=== PATIENT | male | born 1985 | race African-American/Black ===

== ENCOUNTER 2019-10-24 08:19 | Day surgery (SDC) | payer MEDICAID ==
[~2019-10-24] VITALS: Ht 177.8 cm; Wt 87.0 kg
[2019-10-24] MEDS ORDERED: [UNRECOGNIZED DRUG - OTHER] (08:35)
[2019-10-24] MEDS ORDERED: ACETAZOLAMIDE SODIUM 500MG/VIAL IV ONE (08:45)
[2019-10-24] MEDS ORDERED: BALANCED SALT IRRIG SOLN COMB1 500ML OP ONE (09:00)
[2019-10-24 09:17] LABS: BASOPHILS % 0.9 % (0.0-2.0); EOSINOPHILS % 1.6 % (0.0-5.0); HEMATOCRIT. 49.6 % (42.0-52.0); HEMOGLOBIN. 16.2 g/dL (14.0-18.0); LYMPHOCYTES % 48.8 % (20.0-50.0); MEAN CORPUSCULAR HEMOGLOBIN 27.3 pg (28.0-32.0); MEAN CORPUSCULAR VOLUME 83.6 fL (80.0-94.0); MONOCYTES % 7.2 % (2.0-8.0); NEUTROPHILS % 41.5 % (40.0-76.0); PLATELET 184 x1000/uL (130-400); RED BLOOD CELL COUNT 5.93 mill/uL (4.7-6.1); RED CELL DISTRIBUTION WIDTH 13.6 % (11.6-14.6)
[2019-10-24 09:23] LABS: CHLORIDE 112 mEq/L (98-107); PROTHROMBIN TIME 10.7 sec (9.6-11.0)
[2019-10-24] MEDS ORDERED: TRIAMCINOLONE ACETONIDE 40MG/ML 1ML VIAL ONE (09:25)
[2019-10-24] MEDS ORDERED: HYALURONATE SODIUM 10 MG/ML 0.55ML SYRINGE IO ONE ×2 (09:25→10:54)
[2019-10-24] MEDS ORDERED: PROPOFOL 200MG/20ML VIAL IV ONE (10:04)
[2019-10-24] MEDS ORDERED: FENTANYL CITRATE/PF 50MCG/ML 2ML VIAL ONE (10:04)
[2019-10-24] MEDS ORDERED: TRYPAN BLUE 0.5 ML DISP.SYRIN IO ONE (10:49)
[2019-10-24] MEDS ORDERED: MEPERIDINE HCL/PF 25MG/ML CPJ IV PRN (11:45)
[2019-10-24] MEDS: ONDANSETRON HCL 4MG/2ML INJ IV PRN ×2 (13:39→14:34)
[2019-10-24] MEDS: FENTANYL CITRATE/PF 50MCG/ML 2ML VIAL IV PRN ×2 (13:40→14:34)
[2019-10-24 14:34] VITALS: BP 119/86
== END 2019-10-24 14:22 | disposition home or self-care (01) ==
LOC: ER 08:19 → ORIP 08:43 → UNDOADMOB 08:43 → OR 09:24 → ER 09:42 → OR 14:22
PROVIDERS: ATTEND Ophthalmology
DX: H40.9 Unspecified glaucoma (principal); H20.12 Chronic iridocyclitis, left eye; H26.212 Cataract with neovascularization, left eye; H21.542 Posterior synechiae (iris), left eye; H25.89 Other age-related cataract; Z79.899 Other long term (current) drug therapy; Z98.890 Other specified postprocedural states
CPT/HCPCS: 36415; 66180; 66984; 80053; 85025; 85610; 93005; C1783; J1120; J2405; J2704; J3010; J3490; Q9957; V2632; J3301

== ENCOUNTER → 2020-01-28 | Outpatient (CLI) | payer MEDICAID ==
[~2020-01-28] MED LIST: METH2.5T PO; P20 PO; PRED5DRO22 EACHEYE; [UNRECOGNIZED DRUG - OTHER]
== END | disposition home or self-care (01) ==
LOC: LAB 11:45
PROVIDERS: ATTEND Ophthalmology
DX: Z01.818 Encounter for other preprocedural examination (principal); Z11.59 Encounter for screening for other viral diseases
CPT/HCPCS: C9803; U0003

== ENCOUNTER → 2020-01-30 | Day surgery (SDC) | payer MEDICAID ==
[~2020-01-30] VITALS: Ht 177.8 cm; Wt 79.4 kg
[~2020-01-30] MED LIST changes: +ATROPINE SULFATE 1% OPHTH 2ML ONE; +BALANCED SALT IRRIG SOLN 15ML ONE; +BUPIVACAINE HCL/PF 0.75% (7.5MG/ML) 10ML ONE; +CEFAZOLIN SODIUM 1000MG/VIAL ONE; +CIPROFLOXACIN 0.3% OPHTH SOLN 2.5ML ONE; +DEXAMETHASONE 4MG/ML 1ML VIAL ONE; +LACTATED RINGERS 1,000 ML IV SCH; +LIDOCAINE HCL 2%/EPINEPHRINE 1:100,000 20 ML VIAL INFIL ONE; +LIDOCAINE HCL/PF 2% 20 MG/ML 10ML VIAL ONE; +MIDAZOLAM HCL 2 MG/2 ML VIAL ONE; +NEO/POLYMYX B SULF/DEXAMETH OPHTH OINT 3.5GM ONE; +PREDNISOLONE ACETATE 1% OPHTH DROPS 5ML ONE; +PROPOFOL 200MG/20ML VIAL IV ONE; +TETRACAINE 0.5% OPHTH DROPS 4ML ONE
== END | disposition home or self-care (01) ==
LOC: OR 07:46
PROVIDERS: ATTEND Ophthalmology
DX: H40.9 Unspecified glaucoma (principal); H21.501 Unspecified adhesions of iris, right eye; I10 Essential (primary) hypertension; Z79.899 Other long term (current) drug therapy; Z98.890 Other specified postprocedural states
CPT/HCPCS: 66180; J0690; J1100; J2250; J2704; J3490

== ENCOUNTER → 2020-03-15 | Outpatient (CLI) | payer MEDICAID ==
[~2020-03-15] MED LIST changes: -ATROPINE SULFATE 1% OPHTH 2ML ONE; -BALANCED SALT IRRIG SOLN 15ML ONE; -BUPIVACAINE HCL/PF 0.75% (7.5MG/ML) 10ML ONE; -CEFAZOLIN SODIUM 1000MG/VIAL ONE; -CIPROFLOXACIN 0.3% OPHTH SOLN 2.5ML ONE; -DEXAMETHASONE 4MG/ML 1ML VIAL ONE; -LACTATED RINGERS 1,000 ML IV SCH; -LIDOCAINE HCL 2%/EPINEPHRINE 1:100,000 20 ML VIAL INFIL ONE; -LIDOCAINE HCL/PF 2% 20 MG/ML 10ML VIAL ONE; -MIDAZOLAM HCL 2 MG/2 ML VIAL ONE; -NEO/POLYMYX B SULF/DEXAMETH OPHTH OINT 3.5GM ONE; -PREDNISOLONE ACETATE 1% OPHTH DROPS 5ML ONE; -PROPOFOL 200MG/20ML VIAL IV ONE; -TETRACAINE 0.5% OPHTH DROPS 4ML ONE; -[UNRECOGNIZED DRUG - OTHER]
== END | disposition home or self-care (01) ==
LOC: LAB 12:21
PROVIDERS: ATTEND Ophthalmology
DX: Z01.812 Encounter for preprocedural laboratory examination (principal); Z20.828 Contact with and (suspected) exposure to other viral communicable diseases
CPT/HCPCS: C9803; U0003

== ENCOUNTER 2020-03-19 07:19 | Day surgery (SDC) | payer MEDICAID ==
[~2020-03-19] VITALS: Ht 177.8 cm; Wt 83.9 kg
[2020-03-19] MEDS ORDERED: FENTANYL CITRATE/PF 50MCG/ML 2ML VIAL ONE (09:55)
[2020-03-19] MEDS ORDERED: MIDAZOLAM HCL 2 MG/2 ML VIAL ONE ×3 (09:55→10:23)
[2020-03-19] MEDS ORDERED: BALANCED SALT IRRIG SOLN 15ML ONE (10:00)
[2020-03-19] MEDS ORDERED: CIPROFLOXACIN 0.3% OPHTH SOLN 2.5ML ONE (10:00)
[2020-03-19] MEDS ORDERED: NEO/POLYMYX B SULF/DEXAMETH OPHTH OINT 3.5GM ONE (10:00)
[2020-03-19] MEDS ORDERED: BUPIVACAINE HCL/PF 0.75% (7.5MG/ML) 10ML ONE (10:00)
[2020-03-19] MEDS ORDERED: TETRACAINE 0.5% OPHTH DROPS 4ML ONE (10:00)
[2020-03-19] MEDS ORDERED: LIDOCAINE HCL 2%/EPINEPHRINE 1:100,000 20 ML VIAL INFIL ONE (10:00)
[2020-03-19] MEDS: LACTATED RINGERS 1,000 ML IV SCH ×2 (12:21→12:34)
== END 2020-03-19 11:20 | disposition home or self-care (01) ==
LOC: OR 07:19 → EDSTATUS 09:30 → OR 11:20
PROVIDERS: ATTEND Ophthalmology
DX: T85.398A Other mechanical complication of other ocular prosthetic devices, implants and grafts, initial encounter (principal); H40.10X0 Unspecified open-angle glaucoma, stage unspecified; Z79.899 Other long term (current) drug therapy; X58.XXXA Exposure to other specified factors, initial encounter; Y93.89 Activity, other specified; Y92.89 Other specified places as the place of occurrence of the external cause; Y99.8 Other external cause status
CPT/HCPCS: 67120; 88300; J2250; J3010; J3490

== ENCOUNTER → 2020-08-19 | Outpatient (CLI) | payer MEDICAID ==
[~2020-08-19] MED LIST changes: +AMLO10TA80 PO; +DYZ PO; +HYDROMORPHONE HCL/PF 2MG/ML CPJ IV PRN; +LABETALOL 5MG/ML SYR 20 MG/4 ML SYRINGE IV PRN; +MEPERIDINE HCL/PF 25MG/ML CPJ IV PRN; +ONDANSETRON HCL 4MG/2ML INJ IV PRN
== END | disposition home or self-care (01) ==
LOC: LAB 14:16
PROVIDERS: ATTEND Ophthalmology
DX: Z01.812 Encounter for preprocedural laboratory examination (principal)
CPT/HCPCS: C9803; U0003

== ENCOUNTER 2020-08-20 09:16 | Day surgery (SDC) | payer MEDICAID ==
[~2020-08-20] VITALS: Ht 177.8 cm; Wt 83.9 kg
[~2020-08-20 09:16] MED LIST changes: -AMLO10TA80 PO; +ATROPINE SULFATE 1% OPHTH 2ML ONE; +BALANCED SALT IRRIG SOLN 15ML ONE; +BUPIVACAINE HCL/PF 0.75% (7.5MG/ML) 10ML ONE; +CIPROFLOXACIN 0.3% OPHTH SOLN 2.5ML ONE; +CYCLOPENTOLATE HCL 1% OPHTH DROPS 2ML RIGHTEYE ONE; -DYZ PO; -HYDROMORPHONE HCL/PF 2MG/ML CPJ IV PRN; -LABETALOL 5MG/ML SYR 20 MG/4 ML SYRINGE IV PRN; +LIDOCAINE HCL 2%/EPINEPHRINE 1:100,000 20 ML VIAL INFIL ONE; +LIDOCAINE HCL/PF 2% 20 MG/ML 10ML VIAL ONE; -MEPERIDINE HCL/PF 25MG/ML CPJ IV PRN; +NEO/POLYMYX B SULF/DEXAMETH OPHTH OINT 3.5GM ONE; -ONDANSETRON HCL 4MG/2ML INJ IV PRN; +PHENYLEPHRINE HCL 10% OPHTH DROPS 5ML ONE; +PHENYLEPHRINE HCL 10% OPHTH DROPS 5ML RIGHTEYE ONE; +PREDNISOLONE ACETATE 1% OPHTH DROPS 5ML ONE; +TETRACAINE 0.5% OPHTH DROPS 4ML ONE; +TROPICAMIDE 1% OPHTH DROPS 15ML ONE; +TROPICAMIDE 1% OPHTH DROPS 15ML RIGHTEYE ONE
[2020-08-20] MEDS ORDERED: LACTATED RINGERS 1,000 ML IV SCH (09:40)
[2020-08-20] MEDS ORDERED: AMLO10TA80 PO (11:29)
[2020-08-20] MEDS ORDERED: DYZ PO (11:29)
[2020-08-20] MEDS ORDERED: HYALURONATE SODIUM 10 MG/ML 0.55ML SYRINGE IO ONE (11:44)
[2020-08-20] MEDS ORDERED: BALANCED SALT IRRIG SOLN COMB1 500ML OP SCH (12:30)
[2020-08-20] MEDS ORDERED: TRYPAN BLUE 0.5 ML DISP.SYRIN IO ONE (12:49)
[2020-08-20] MEDS ORDERED: MIDAZOLAM HCL 2 MG/2 ML VIAL ONE ×2 (12:55→13:26)
[2020-08-20] MEDS ORDERED: FENTANYL CITRATE/PF 50MCG/ML 2ML VIAL ONE ×2 (12:55→13:26)
[2020-08-20] MEDS ORDERED: BALANCED SALT IRRIG SOLN COMB2 500ML OP ONE (13:07)
[2020-08-20] MEDS ORDERED: HYDROMORPHONE HCL/PF 2MG/ML CPJ IV PRN (14:00)
[2020-08-20] MEDS ORDERED: MEPERIDINE HCL/PF 25MG/ML CPJ IV PRN (14:00)
[2020-08-20] MEDS ORDERED: LABETALOL 5MG/ML SYR 20 MG/4 ML SYRINGE IV PRN (14:00)
[2020-08-20] MEDS ORDERED: ONDANSETRON HCL 4MG/2ML INJ IV PRN (14:00)
== END 2020-08-20 15:00 | disposition home or self-care (01) ==
LOC: OR 09:16
PROVIDERS: ATTEND Ophthalmology
DX: H25.89 Other age-related cataract (principal); I10 Essential (primary) hypertension; Z79.899 Other long term (current) drug therapy
CPT/HCPCS: 66982; J2250; J3010; J3490; Q9957; V2632